=== PATIENT | female | born 1980 | race Hispanic/Latino ===

== ENCOUNTER 2018-08-30 09:58 | Outpatient (CLI) | payer MEDICAID | END 2018-08-30 09:59 | disposition home or self-care (01) | LOC: C.PAT 09:58 | DX: N20.0 Calculus of kidney (principal) ==

== ENCOUNTER 2018-09-04 09:50 | Day surgery (SDC) | payer MEDICAID ==
[2018-09-04 11:10] VITALS: BMI 29.5
[2018-09-04] MEDS ORDERED: HYDROmorphone 0.5 mg/0.5 ml ISec IVP PRN (12:02)
[2018-09-04] MEDS ORDERED: Gentamicin 80 mg in 0.9% NS 160 MG/200 ML BAG IVPB ONE (12:20)
[2018-09-04] MEDS ORDERED: Iohexol 240 200 ML ONE (12:28)
[2018-09-04] MEDS ORDERED: Midazolam 2 MG/2 ML VIAL ONE (12:33)
[2018-09-04] MEDS ORDERED: Propofol 10 mg/ml Inj (20 ML) ONE (12:33)
[2018-09-04] MEDS: Ciprofloxacin 400mg/200ml D5W 400 MG/200 ML BAG IVPB ONE ×2 (12:45→12:57)
--- NOTE | 2018-09-04 13:16 | PCM.SURG1 ---
Surgeon's Initial Post Op Note - Surgeon's Notes Surgeon: Monica Nursing Consultant: NATALI Type of Anesthesia: General LMA Anesthesia Administered By: staff Pre-Operative Diagnosis: Renal and blader calculi/retained stent Operative Findings: renal and large bladder calculi/encrusted stent Post-Operative Diagnosis: same Operation Performed: nephrostogram/cystoscopy Specimen/Specimens Removed: na Estimated Blood Loss: EBL {In ML}: 0 Blood Products Given: N/A Drains Used: No Drains Post-Op Condition: Good Date of Surgery/Procedure: 09/04/18 Time of Surgery/Procedure: 13:17
--- NOTE | 2018-09-04 14:01 | RAD ---
Date of service: 09/04/2018 PROCEDURE: Intraoperative Fluoroscopy. HISTORY: BLADDER CALCULUS FINDINGS: Fluoroscopic assistance was provided. Fluoroscopy time = 5.7 sec. Radiation dose = 0.19560 mGy-cm. Please refer to the operative report from [facility].
[2018-09-04 14:48] VITALS: BP 136/70; PULSE 68; RESP 18; TEMP 97; O2SAT 100
--- NOTE | 2018-09-05 09:51 | RAD ---
Date of service: 09/04/2018 HISTORY: BLADDER STONE COMPARISON: None available. TECHNIQUE: 1 view obtained. FINDINGS: BOWEL: Extensive stool retention especially right colonic stool retention present. No bowel obstruction appreciated. A double-J left ureteral stent is in place. There are multiple left upper abdominal quadrant large calculi compatible with coalescent the staghorn type calcification probably in the left mid and left upper collecting systems. The proximal left ureteral core all projects over 1 such expected conglomerate calculus in the left upper renal collecting system. The distal left ureteral stent core projects over the expected position of the bladder and is partly obscured by a large laminated inferred bladder calculus measuring 6 x 4 cm in size. A left 1 nephrostomy tube also is suggested. A hand projects over this left nephrostomy tube. BONES: Normal. OTHER FINDINGS: None. IMPRESSION: Findings as above.
== END 2018-09-04 15:13 | disposition home or self-care (01) ==
LOC: C.SDS 09:50
PROVIDERS: ATTEND Urology
DX: N20.0 Calculus of kidney (principal); N21.0 Calculus in bladder; N13.30 Unspecified hydronephrosis; Z96.0 Presence of urogenital implants
CPT/HCPCS: 52352; 74018; J0744; J1580; Q9966